=== PATIENT | female | born 1935 | race Caucasian/White ===

== ENCOUNTER 2016-11-27 23:31 | Inpatient (IN) | payer OTHER ==
[~2016-11-27] VITALS: Ht 175.3 cm; Wt 64.0 kg
[~2016-11-27 23:31] MED LIST: CLARITIN 10MG T10 MG PO; COUMADIN6 MG PO; DILTIAZEM ER240 M1 PO; FUROSEMIDE20 MG PO; LASIX 40 MG TAB40 MG PO; NEFAZODONE HCL50 MG PO; NEURONTIN 100100 MG PO; POTASSIUM CHLO10 MEQ PO; PREMARIN0.3 MG PO; PROAIR HFA8.5 GM INH; RYTHMOL SR425 MG PO
[2016-11-29 06:24] LABS: HEMOGLOBIN 12.1 gm/dl (12.3-15.3); RED BLOOD COUNT 3.8 M/UL (4.00-5.10)
[2016-11-29 06:44] LABS: BUN/CREATININE RATIO 22 (0-10)
[2016-11-30 06:46] LABS: BUN/CREATININE RATIO 23 (0-10)
[2016-11-30 09:45] LABS: LDH, BODY FLUID 102 U/L
[2016-11-30 09:53] LABS: BODY FLUID SOURCE PLEURAL
[2016-12-01 04:20] LABS: HEMOGLOBIN 12.1 gm/dl (12.3-15.3); RED BLOOD COUNT 3.8 M/UL (4.00-5.10)
[2016-12-01 04:28] LABS: WHITE BLOOD COUNT 7.1 K/UL (4.5-11.0)
[2016-12-01 04:46] LABS: BUN/CREATININE RATIO 25 (0-10)
[2016-12-01] MEDS ORDERED: MICARDIS20 MG PO (10:23)
[2016-12-01] MEDS ORDERED: TYLENOL 325MG325 MG PO (10:28)
[2016-12-01] MEDS ORDERED: K-DUR TAB 20 M20 MEQ PO (10:32)
[2017-02-12] MEDS ORDERED: POTASSIUM CHLO10 ME1 PO (20:04)
[2017-02-12] MEDS ORDERED: CALCIUM500 MG PO (20:05)
[2017-02-12] MEDS ORDERED: VITAMIN C 500500 MG PO (20:05)
[2017-02-12] MEDS ORDERED: VITAMIN E400 UNI1 PO (20:06)
[2017-02-13] MEDS ORDERED: LEVAQUIN500 MG PO (16:24)
== END 2016-12-01 11:15 | disposition home or self-care (01) | DRG 292 ==
LOC: MED SURG 4 23:31
PROVIDERS: ADMIT Internal Medicine Infectious Disease
PROC: 0W9B3ZX Drainage of Left Pleural Cavity, Percutaneous Approach, Diagnostic (ICD-10-PCS; principal; 2016-11-30)
DX: I11.0 Hypertensive heart disease with heart failure (principal); J91.8 Pleural effusion in other conditions classified elsewhere; I50.33 Acute on chronic diastolic (congestive) heart failure; I48.0 Paroxysmal atrial fibrillation; Z79.01 Long term (current) use of anticoagulants; E87.6 Hypokalemia; Z95.0 Presence of cardiac pacemaker; I27.2 Other secondary pulmonary hypertension; Z88.0 Allergy status to penicillin; J45.909 Unspecified asthma, uncomplicated
CPT/HCPCS: ECHO; 36415; 71010; 71020; 80048; 80053; 82945; 83615; 83880; 84157; 85025; 85027; 85610; 87015; 87070; 87102; 87116; 87205; 89051; 93005; 93306; 94664; G0379; J1940

== ENCOUNTER 2016-12-30 11:02 | Emergency (ER) | payer OTHER ==
[~2016-12-30 11:02] MED LIST changes: +K-DUR TAB 20 M20 MEQ PO; +MICARDIS20 MG PO; +TYLENOL 325MG325 MG PO
[2016-12-30 12:52] LABS: HEMOGLOBIN 13.4 gm/dl (12.3-15.3); RED BLOOD COUNT 4.14 M/UL (4.00-5.10); WHITE BLOOD COUNT 6.8 K/UL (4.5-11.0)
[2016-12-30 14:02] LABS: BUN/CREATININE RATIO 23 (0-10)
[2017-02-12] MEDS ORDERED: POTASSIUM CHLO10 ME1 PO (20:04)
[2017-02-12] MEDS ORDERED: CALCIUM500 MG PO (20:05)
[2017-02-12] MEDS ORDERED: VITAMIN C 500500 MG PO (20:05)
[2017-02-12] MEDS ORDERED: VITAMIN E400 UNI1 PO (20:06)
[2017-02-13] MEDS ORDERED: LEVAQUIN500 MG PO (16:24)
== END 2016-12-30 18:48 | disposition home or self-care (01) ==
LOC: ER1 11:02
PROVIDERS: Preventive Medicine Occupational Medicine
DX: J44.1 Chronic obstructive pulmonary disease with (acute) exacerbation (principal); I48.91 Unspecified atrial fibrillation; Z86.73 Personal history of transient ischemic attack (TIA), and cerebral infarction without residual deficits; Z88.0 Allergy status to penicillin; Z88.8 Allergy status to other drugs, medicaments and biological substances; Z79.899 Other long term (current) drug therapy; Z79.01 Long term (current) use of anticoagulants
CPT/HCPCS: 36415; 71020; 80053; 82150; 82550; 82553; 83690; 83874; 83880; 84484; 85025; 93005; 94664; 99285; J7030

== ENCOUNTER → 2017-01-12 | Outpatient (CLI) | payer OTHER ==
[~2017-01-12] MED LIST changes: +CALCIUM500 MG PO; +LEVAQUIN500 MG PO; +POTASSIUM CHLO10 ME1 PO; +VITAMIN C 500500 MG PO; +VITAMIN E400 UNI1 PO
== END ==
LOC: EXRD 10:30
DX: J90 Pleural effusion, not elsewhere classified (principal)
CPT/HCPCS: 71020

== ENCOUNTER → 2017-01-12 | Outpatient (CLI) | payer OTHER | LOC: HEART 5 09:40 | DX: J90 Pleural effusion, not elsewhere classified (principal) | CPT/HCPCS: 71020 ==